=== PATIENT | female | born 1975 | race African-American/Black ===

== ENCOUNTER 2023-10-29 21:23 | Emergency (ER) | payer BC ==
[2023-10-29] MEDS ORDERED: PROMETHAZINE INJ 25 MG/ML AMP ONE (23:06)
[2023-10-29] MEDS ORDERED: KETOROLAC 30 MG/ML INJ ONE (23:06)
[2023-10-29 23:08] LABS: Absolute Lymphocytes (CBC) 1.1 K/uL (0.7-4.9); Absolute Monocytes 0.4 K/uL (0.1-1.3); Absolute Neutrophil 3.3 K/uL (1.8-8.0); Basophils % 0.4 % (0-1.3); Eosinophils % 0.1 % (0-4.4); Hematocrit 34.1 % (36.0-45.0); Hemoglobin 11.7 g/dL (12.0-15.0); Lymphocytes % 23.1 % (15.3-44.8); MCH 32.2 pg (27.0-35.0); MCHC 34.2 g/dL (32.0-36.0); MCV 94.2 fL (80-100); MPV 7.9 fL (7.6-11.3); Monocytes % 8.2 % (3.3-12.3); Neutrophils % 68.2 % (41.7-73.7); Nucleated Red Blood Cells % 0.1 % (0-0); Platelets 211 thou/uL (152-406); RBC Red Blood Cell Count 3.62 M/uL (3.86-4.86)
[2023-10-29 23:18] LABS: Albumin 3.6 g/dL (3.4-5.0); Albumin/Globulin Ratio 0.9 (1.1-1.8); Anion Gap 8.4 mEq/L (5.0-15.0); Bilirubin Total 0.2 mg/dL (0.2-1.0); Globulin 3.9 g/dL (2.3-3.5); Potassium 3.4 mEq/L (3.5-5.1); Protein, Total 7.5 g/dL (6.4-8.2)
--- NOTE | 2023-10-29 23:39 | RAD REPORT ---
EXAM DESCRIPTION: Head Brain Wo Cont RadLex: CT HEAD WITHOUT IV CONTRAST CLINICAL HISTORY: 48 years Female; HEADACHE; Bed Name: 13 TECHNIQUE: Noncontrast CT head. All CT scans at this facility use dose modulation, iterative reconstruction, and/or weight based dosi ng when appropriate to reduce radiation dose to as low as reasonably achievable. COMPARISON: None. FINDINGS: Parenchyma: No acute hemorrhage, large territorial infarction, or acute. Ventricles and extra-axial spaces: Appropriate for age. Visualized paranasal sinuses: Mild mucosal thickening in the bilateral maxillary sinuses. Mastoid air cells: Clear. Bones: No acute focal abnormality. Additional comment: None. IMPRESSION: 1. No acute intracranial findings. 2. Mild bilateral maxillary sinus mucosal thickening. Electronically signed by: Alexei Arellano MD 10/29/2023 11:29 PM CDT RP Z9 Due to temporary technical issues with the [employer] reporting system, reports are being kain d by the in-house radiologist without review as a courtesy to ensure prompt reporting the interpreting radiologist is fully responsible for the content of the report. Transcribed Date/Time: 10/29/2023 11:39 PM
--- NOTE | 2023-10-29 23:51 | ER ---
Nurse's Notes [facility] Name: Debbie Teresa Age: 48 yrs Sex: Female : 1975 Arrival Date: 10/29/2023 Time: :23 Bed 13 Private MD: Diagnosis: Headache Presentation: 10/28 22:09 Chief complaint: Patient states: Pt c/o migraine since last Sunday, no relief with tl4 medications. Pt states today her legs feel heavy. Coronavirus screen: At this time, the client does not indicate any symptoms associated with coronavirus-19. Ebola Screen: No symptoms or risks identified at this time. Initial Sepsis Screen: Does the patient meet any 2 criteria? No. Patient's initial sepsis screen is negative. Does the patient have a suspected source of infection? No. Patient's initial sepsis screen is negative. Risk Assessment: Do you want to hurt yourself or someone else? Patient reports no desire to harm self or others. Onset of symptoms was October 22, 2023. 22:09 Method Of Arrival: Ambulatory tl4 22:09 Acuity: SAVANNA 3 tl4 Triage Assessment: 22:13 Headache History: The patient has had previous headaches and this one is similar to tl4 previous episodes. General: Appears in no apparent distress. Behavior is calm, cooperative. Pain: Complains of pain in head Pain currently is 10 out of 10 on a pain scale. Pain began gradually, Also complains of no other associated symptoms. EENT: No signs and/or symptoms were reported regarding the EENT system. Neuro: Level of Consciousness is awake, alert, obeys commands, Oriented to person, place, time, situation, Reports headache. Cardiovascular: Capillary refill < 3 seconds Patient's skin is warm and dry. Respiratory: Airway is patent Respiratory effort is even, unlabored, Respiratory pattern is regular, symmetrical. GI: No signs and/or symptoms were reported involving the gastrointestinal system. : No signs and/or symptoms were reported regarding the genitourinary system. Derm: No signs and/or symptoms reported regarding the dermatologic system. Musculoskeletal: Reports legs feel heavy. 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 - Infectious Disease History:: Denies. - Social history:: Smoking status: Patient denies any tobacco usage or history of. Screenin:25 [facility] ED Fall Risk Assessment (Adult) History of falling in the last 3 months, rg5 including since admission No falls in past 3 months (0 pts) Confusion or Disorientation No (0 pts) Intoxicated or Sedated No (0 pts) Impaired Gait No (0 pts) Mobility Assist Device Used No (0 pt) Altered Elimination No (0 pt) Score/Fall Risk Level 0 - 2 = Low Risk Oriented to surroundings, Maintained a safe environment, Hourly rounding (assess needs \T\ fall precautionary measures) done. Abuse screen: Denies threats or abuse. Nutritional screening: No deficits noted. Tuberculosis screening: No symptoms or risk factors identified. Assessment: 22:25 General: Appears in no apparent distress. comfortable, Behavior is calm, cooperative, rg5 appropriate for age. Pain: Complains of pain in headache Pain currently is 8 out of 10 on a pain scale. Quality of pain is described as aching. Neuro: Level of Consciousness is awake, alert, obeys commands, Oriented to person, place, time. Cardiovascular: Denies chest pain, shortness of breath, Capillary refill < 3 seconds Patient's skin is warm and dry. Respiratory: Airway is patent Trachea midline Respiratory effort is even, unlabored, Respiratory pattern is regular, symmetrical. GI: Abdomen is round non-distended, Abd is soft and non tender. : No signs and/or symptoms were reported regarding the genitourinary system. EENT: No deficits noted. Derm: Skin is intact, Skin is dry, Skin is normal, Skin temperature is warm. Musculoskeletal: Range of motion: intact in all extremities. 23:00 Reassessment: No changes from previously documented assessment. Patient and/or family rg5 updated on plan of care and expected duration. Pain level reassessed. 10/29 00:00 Reassessment: Patient and/or family updated on plan of care and expected duration. Pain rg5 level reassessed. Patient is alert, oriented x 3, equal unlabored respirations, skin warm/dry/pink. Patient states feeling better. Patient states symptoms have improved. Vital Signs: 10/28 22:09 BP 133 / 87; Pulse 78; Resp 18; Temp 98.1(O); Pulse Ox 100% on R/A; Weight 92.99 kg; tl4 Height 5 ft. 1 in. ; 22:24 BP 147 / 89; Pulse 89; Resp 17; Temp 97.9(O); Pulse Ox 100% on R/A; Pain 8/10; rg5 23:16 BP 119 / 93; Pulse 87; Resp 17; Pulse Ox 100% on R/A; Pain 8/10; rg5 10/29 00:00 BP 116 / 87; Pulse 78; Resp 17; Temp 98(O); Pulse Ox 100% on R/A; Pain 3/10; rg5 10/28 22:09 Body Mass Index 38.73 (92.99 kg, 154.94 cm) tl4 22:24 Pain Scale: Adult rg5 23:16 Pain Scale: Adult rg5 10/29 00:00 Pain Scale: Adult rg5 [place] Coma Score: 10/28 22:25 Eye Response: spontaneous(4). Motor Response: obeys commands(6). Verbal Response: rg5 oriented(5). Total: 15. ED Course: 21:36 Patient arrived in ED. gm2 21:41 Jailene Munson MD is Attending Physician. sp3 22:13 Triage completed. tl4 22:15 Arm band placed on left wrist. tl4 22:18 Guzman Davis, [place] is Primary Nurse. rg5 22:20 Inserted saline lock: 20 gauge in left antecubital area, using aseptic technique. Blood rg5 collected. Flushed with 10 mL NS. 22:25 Patient has correct armband on for positive identification. Bed in low position. Call rg5 light in reach. Side rails up X 1. 22:25 No provider procedures requiring assistance completed. rg5 22:56 CT Head Brain wo Cont In Process Unspecified. EDMS 23:18 Awaiting lab results, Awaiting radiology results. rg5 23:18 Resting quietly. rg5 10/29 00:07 Provided Education on: post er care. rg5 00:07 Inserted. rg5 00:07 IV discontinued, bleeding controlled, No redness/swelling at site. Pressure dressing rg5 applied. Administered Medications: 10/28 23:07 Drug: Ketorolac IVP 30 mg IVP once Route: IVP; Site: left antecubital; rg5 10/29 00:00 Follow up: Response: No adverse reaction; Pain is decreased rg5 10/28 23:08 Drug: Promethazine IVP 12.5 mg IVP once Route: IVP; Site: left antecubital; rg5 10/29 00:00 Follow up: Response: No adverse reaction rg5 Medication: 10/28 22:25 VIS not applicable for this client. rg5 Outcome: 23:51 Discharge ordered by . sp3 10/29 00:06 Discharged to home ambulatory, rg5 Condition: stable Discharge instructions given to patient, Instructed on discharge instructions, follow up and referral plans. Demonstrated understanding of instructions, follow-up care, medications, Prescriptions given X 2, 00:09 Patient left the ED. rg5 Signatures: Dispatcher [employer] EDMS Jailene Munson MD MD sp3 Ada Pierre 2 Marco Guido RN RN tl4 Guzman Davis RN RN rg5 Corrections: (The following items were deleted from the chart) 10/28 23:18 22:15 Inserted saline lock: 20 gauge in left antecubital area, using aseptic technique. rg5 Blood collected. Flushed with 10 mL NS rg5
--- NOTE | 2023-10-29 23:51 | EDPHYS ---
Physician Documentation [facility] Name: Debbie Tersea Age: 48 yrs Sex: Female : 1975 Arrival Date: 10/29/2023 Time: 21:23 Bed 13 Private MD: ED Physician Jailene Munson HPI: 10/28 22:49 This 48 yrs old Black Female presents to ER via Ambulatory with complaints of Headache, sp3 Arm Pain, PT says legs feel heavy. 22:49 48-year-old female with history of migraine headaches diagnosed 15 years ago in [address] with imaging performed at that time who used to be on Imitrex and other medications who is not needed them as frequently now presents to the ED with recurrent "migraine headache" lasting approximately 1 week. She denies any other symptoms including fever, URI symptoms, neck pain, neck stiffness, chest pain, shortness of breath, back pain, trauma, or any other significant signs, symptoms or history at this time on review of systems.. 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 - Infectious Disease History:: Denies. - Social history:: Smoking status: Patient denies any tobacco usage or history of. ROS: 22:50 Constitutional: Negative for fever, chills, and weight loss, Eyes: Negative for injury, sp3 pain, redness, and discharge, ENT: Negative for injury, pain, and discharge, Neck: Negative for injury, pain, and swelling, Cardiovascular: Negative for chest pain, palpitations, and edema, Respiratory: Negative for shortness of breath, cough, wheezing, and pleuritic chest pain, Abdomen/GI: Negative for abdominal pain, nausea, vomiting, diarrhea, and constipation, Back: Negative for injury and pain, MS/Extremity: Negative for injury and deformity, Skin: Negative for injury, rash, and discoloration, Psych: Negative for depression, anxiety, suicide ideation, homicidal ideation, and hallucinations, Allergy/Immunology: Negative for hives, rash, and allergies, Endocrine: Negative for neck swelling, polydipsia, polyuria, polyphagia, and marked weight changes, Hematologic/Lymphatic: Negative for swollen nodes, abnormal bleeding, and unusual bruising, 22:50 All other systems are negative, Exam: 22:51 Constitutional: This is a well developed, well nourished patient who is awake, alert, sp3 and in no acute distress. Head/Face: Normocephalic, atraumatic. ENT: Nares patent. No nasal discharge, no septal abnormalities noted. External auditory canals are clear. Oropharynx with no redness, swelling, or masses, exudates, or evidence of obstruction, uvula midline. Mucous membranes moist. Neck: Trachea midline, no thyromegaly or masses palpated, and no cervical lymphadenopathy. Supple, full range of motion without nuchal rigidity, or vertebral point tenderness. No Meningismus. Chest/axilla: Normal chest wall appearance and motion. Nontender with no deformity. No lesions are appreciated. Cardiovascular: Regular rate and rhythm with a normal S1 and S2. No gallops, murmurs, or rubs. Normal PMI, no JVD. No pulse deficits. Respiratory: Lungs have equal breath sounds bilaterally, clear to auscultation and percussion. No rales, rhonchi or wheezes noted. No increased work of breathing, no retractions or nasal flaring. Abdomen/GI: Soft, non-tender, with normal bowel sounds. No distension or tympany. No guarding or rebound. No evidence of tenderness throughout. Back: No spinal tenderness. No costovertebral tenderness. Full range of motion. Skin: Warm, dry with normal turgor. Normal color with no rashes, no lesions, and no evidence of cellulitis. MS/ Extremity: Pulses equal, no cyanosis. Neurovascular intact. Full, normal range of motion. Neuro: Awake and alert, GCS 15, oriented to person, place, time, and situation. Cranial nerves II-XII grossly intact. Motor strength 5/5 in all extremities. Sensory grossly intact. Cerebellar exam normal. Normal gait. Psych: Awake, alert, with orientation to person, place and time. Behavior, mood, and affect are within normal limits. 22:51 Eyes: Normal ocular exam with mild photophobia noted.. Vital Signs: 22:09 BP 133 / 87; Pulse 78; Resp 18; Temp 98.1(O); Pulse Ox 100% on R/A; Weight 92.99 kg; tl4 Height 5 ft. 1 in. ; 22:24 BP 147 / 89; Pulse 89; Resp 17; Temp 97.9(O); Pulse Ox 100% on R/A; Pain 8/10; rg5 23:16 BP 119 / 93; Pulse 87; Resp 17; Pulse Ox 100% on R/A; Pain 8/10; rg5 10/29 00:00 BP 116 / 87; Pulse 78; Resp 17; Temp 98(O); Pulse Ox 100% on R/A; Pain 3/10; rg5 10/28 22:09 Body Mass Index 38.73 (92.99 kg, 154.94 cm) tl4 22:24 Pain Scale: Adult rg5 23:16 Pain Scale: Adult rg5 10/29 00:00 Pain Scale: Adult rg5 [place] Coma Score: 10/28 22:25 Eye Response: spontaneous(4). Motor Response: obeys commands(6). Verbal Response: rg5 oriented(5). Total: 15. MDM: 22:17 Patient medically screened. sp3 22:51 Data reviewed: vital signs, nurses notes, lab test result(s), radiologic studies. ED sp3 course: 48-year-old female with history of migraines now with recurrent migraine headache for 1 week. No imaging has been performed for over 15 years. Differential diagnosis includes migraine headache, other headache, other intracranial process, among others. Clinically have ruled out sepsis, shock, meningitis, or any other critical pathology. Will obtain CT scan of the head, laboratory values and administer Phenergan and ketorolac to start for general supportive care. Further medications as indicated. Disposition pending workup and patient course.. 23:50 ED course: Patient has improved. CT scan negative and laboratories within normal sp3 values. We will safely discharge patient home on tramadol and follow-up with Dr. Mederos.. 10/28 22:36 Order name: CBC with Diff; Complete Time: 23:23 sp3 10/28 22:36 Order name: CMP; Complete Time: 23:23 sp3 10/28 22:36 Order name: CT Head Brain wo Cont sp3 10/28 22:36 Order name: IV Saline Lock; Complete Time: 22:51 sp3 10/28 22:36 Order name: Labs collected and sent; Complete Time: 22:51 sp3 Administered Medications: 23:07 Drug: Ketorolac IVP 30 mg IVP once Route: IVP; Site: left antecubital; rg5 10/29 00:00 Follow up: Response: No adverse reaction; Pain is decreased rg5 10/28 23:08 Drug: Promethazine IVP 12.5 mg IVP once Route: IVP; Site: left antecubital; rg5 10/29 00:00 Follow up: Response: No adverse reaction rg5 Disposition Summary: 10/29/23 23:51 Discharge Ordered Notes: Location: Home sp3 Condition: Stable sp3 Diagnosis - Headache sp3 Followup: sp3 - With: Private Physician - When: Upon discharge from the Emergency Department - Reason: Continuance of care Discharge Instructions: - Discharge Summary Sheet sp3 - Migraine Headache sp3 Forms: - Medication Reconciliation Form sp3 - Antibiotic Education sp3 - Prescription Opioid Use sp3 - Patient Portal Instructions sp3 - Leadership Thank You Letter sp3 Prescriptions: - Imitrex 25 mg Oral Tablet - take 1 tablet ORAL route one time - x 1 dose with fluids as early as possible sp3 after the onset of a migraine attack; if headache returns, the dose may be repeated after 2 hours, not to exceed a total daily dose of 8 tablets; 9 tablet; Refills: 0, Product Selection Permitted - Tramadol 50 mg Oral Tablet - take 1 tablet ORAL route every 8 hours as needed; 12 tablet; Refills: 0, sp3 Product Selection Permitted Signatures: Dispatcher [employer] Jailene Beck MD MD sp3 Marco Guido RN RN tl4 Guzman Davis RN RN rg5
[2023-10-30 00:33] VITALS: O2SAT 100
[2023-10-30 00:38] VITALS: BP 116/87; TEMP 98
== END 2023-10-30 00:09 | disposition home or self-care (01) ==
LOC: ER 21:23
DX: R51.9 Headache, unspecified (principal)
CPT/HCPCS: 96374; 96375; 99284